=== PATIENT | male | born 1990 | race Caucasian/White ===

== ENCOUNTER 2023-02-02 18:14 | Emergency (ER) | payer MEDICAID, SELFPAY ==
[2023-02-02 18:15] VITALS: BP 129/90; PULSE 108; RESP 16; TEMP 36.2; O2SAT 98; BMI 34.5
--- NOTE | 2023-02-02 18:48 | EDS_ITS ---
HPI History of Present Illness Chief Complaint: Laceration Narrative Narrative: 33-year-old male with no significant medical history presents to the emergency department after a laceration while using a razor. Patient states that he was using a razor to get a decal off of something, he was going upward motion when it slipped striking him in the nose. He does have a laceration to the tip of the nose. Bleeding is controlled, he does unsure when his last tetanus vaccination was. Patient denies any other injury. [facility] Medical History (Updated 02/02/23 @ 19:28 by MICKI Boles) ADHD Anxiety Home Medications alprazolam 0.5 mg tablet 0.5 mg PO DAILY 02/02/23 [History Last Taken Unknown] dextroamphetamine-amphetamine 12.5 mg tablet (Adderall) 12.5 mg PO DAILY 02/02/23 [History Last Taken Unknown] Allergy/AdvReac Type Severity Reaction Status Date / Time No Known Allergies Allergy Verified 02/02/23 18:51 Social History Smoking Status: Unknown if ever smoked ROS ROS ED ROS Narrative Constitutional: Negative for fever, chills, weight loss, weakness Eyes: Negative for vision loss, vision change, double vision ENT: Negative for any sore throat, ear pain, congestion Cardiovascular: Negative for any chest pain, tightness, palpitations Respiratory: Negative for any cough, sputum production, hemoptysis, dyspnea, dyspnea on exertion, orthopnea Gastrointestinal: Negative for any abdominal pain, nausea, vomiting, diarrhea, constipation, blood in stool, blood in vomit : Negative for any urinary frequency, dysuria, retention, blood in urine Muscle skeletal: Negative for any muscle joint pain, stiffness, myalgias, arthralgias, neck pain, back pain Neurological: Negative for any headache, syncope, numbness or tingling, dizziness Skin: Negative for any rashes, lumps, itching, abrasions. Positive for laceration to the tip of the nose Psychiatric: Negative for any depression, anxiety, stress, suicidal ideation, homicidal ideation Hematologic: Negative for any easy bruising, excessive bruising, easy bleeding Allergies: Negative for any eczema, hives, rash EXAM Physical Exam Narrative Exam Narrative: Vital signs reviewed. HEET: Head normocephalic atraumatic, TMs clear bilaterally. Posterior pharynx is clear, moist mucous membranes. Nares clear bilaterally. Patient has a 2 cm flap-like laceration to the tip of the nose. The nares are not involved. There is no septal hematoma, no other deep nasal injury. The area appears to be clean. Neck: Supple with no lymphadenopathy or tenderness. No signs of meningismus, negative jolt sign. Cardiac: Regular rate and rhythm no murmurs gallops or rubs, equal peripheral pulses bilaterally. Respiratory: Lungs clear to auscultation bilaterally. No chest tenderness. Abdomen: Soft, nontender, nondistended. No abdominal bruit or pulsatile masses. No hepatosplenomegaly Extremities: No peripheral edema, no signs of gross trauma or deformity. Active full range of motion of all extremities. Neuro: Cranial nerves II through XII intact, no focal neurological deficits. Skin: Clean dry and intact with no rash, purpura, petechiae, vesicles or pustules. Backs/flank: No CVA tenderness, no midline spinal tenderness, no deformity. Psych: Normal mood and affect. No SI, HI or acute psychosis. Const Vital Signs: 02/02/23 18:15 Temperature 97.2 F L Temperature Source Temporal Pulse Rate 108 H Respiratory Rate 16 Blood Pressure 129/90 H Blood Pressure Mean 103 Pulse Ox 98 Oxygen Delivery Method Room Air [facility] Treatment and Re-Evaluation :: Patient appears well, patient appears nontoxic, vital signs are stable. Patient presents to the emergency department with a laceration to the tip of the nose secondary to a razor. Patient's tetanus vaccination will be updated today. Patient was slightly anxious however he did tolerate the procedure well. There is a 2 cm flap-like laceration to the tip of the nose. The area was irrigated, there is no evidence of any foreign body. Not leave any radiology is necessary. Patient has no internal nasal injury. Patient will have the sutures removed in 7 days. He will follow-up with his PCP, he will keep the area covered while at work. He is instructed to return for any worsening redness, concerning for any infection. Procedures Lacerations 2 cm flap-like laceration: Length: 0.79 in Depth: Skin Shape: Flap Prep: Sterile Conditions and Shure-Clens Laceration repair: Irrigated, Lidocaine and Skin sutures Irrigated (ml): 200 Number of Sutures/Venkat: 6 Suture Information: Ethilon and 6-0 Comment: Sterile gloves, sterile drapes were used. Edges approximate nicely, patient tolerated well Discharge Plan Triage Chief Complaint: Laceration ED Midlevel Provider: Samy Mckenna ED Provider: Abdias Haider Dx/Rx/DC Orders Clinical Impression: Complex laceration of nose Instructions: ED Laceration Nose with ..., ED Laceration Minimize Scars Prescriptions: No Action dextroamphetamine-amphetamine [Adderall] 12.5 mg Tablet 12.5 mg PO DAILY alprazolam 0.5 mg Tablet 0.5 mg PO DAILY Referrals: Trey Wilhelm MD [Non-Staff] - Activity Restrictions/Additional Instructions: Please schedule follow-up with your physician. Have the sutures removed in 7 days. Please keep clean and dry. Return for any signs of redness or signs of infection. After it is healed, please use sunscreen throughout the summer months as this could decrease scarring. Disposition Disposition: Home, Self Care Discharge Date/Time: 02/02/23 19:37
[2023-02-02] MEDS: Diphth,Pertuss(Acell),Tet Vac 0.5 ML Vial IM (18:54)
[2023-02-02] MEDS: Lidocaine 1% (20 ml mdv) 20 ML Vial INFILT (18:54)
== END 2023-02-02 19:37 | disposition home or self-care (01) ==
PROVIDERS: Emergency Provider Emergency Medicine; Visit Provider Emergency Medicine
DX: S01.21XA Laceration without foreign body of nose, initial encounter (principal); Z23 Encounter for immunization; W26.8XXA Contact with other sharp object(s), not elsewhere classified, initial encounter
CPT/HCPCS: 12011; 90471; 90715; 99282